=== PATIENT | male | born 1985 | race African-American/Black ===

== ENCOUNTER 2022-07-03 16:58 | Emergency (ER) | payer MEDICAID ==
[~2022-07-03] VITALS: Ht 175.3 cm; Wt 68.2 kg
[2022-07-03] MEDS ORDERED: HYDROCODONE/ACETAMINOPHEN 10-325 MG TABLET PO ONE (18:00)
[2022-07-03 18:13] VITALS: BP 122/78
[2022-07-03] MEDS ORDERED: CYCL-397 PO (18:28)
== END 2022-07-03 19:07 | disposition home or self-care (01) ==
LOC: EMS 17:28
DX: S20.211A Contusion of right front wall of thorax, initial encounter (principal); F12.90 Cannabis use, unspecified, uncomplicated; F17.210 Nicotine dependence, cigarettes, uncomplicated; R07.81 Pleurodynia; X58.XXXA Exposure to other specified factors, initial encounter; Y93.02 Activity, running; Y92.69 Other specified industrial and construction area as the place of occurrence of the external cause; Y99.0 Civilian activity done for income or pay
CPT/HCPCS: 71101; 99283